=== PATIENT | male | born 2000 | race Caucasian/White ===

== ENCOUNTER 2021-09-30 15:38 | Emergency (ER) | payer OTHER, MEDICAID ==
[2021-09-30 15:58] VITALS: BP 143/85
[2021-09-30] MEDS ORDERED: Sodium Chloride 0.9% 10 ML Syringe FLUSH PRN (16:13)
[2021-09-30] MEDS ORDERED: Diphtheria,Pertussis(Acell),Tetanus Vaccine 0.5 ML Syringe IM ONE (16:13)
[2021-09-30] MEDS ORDERED: fentaNYL 50 MCG/ML SDV IVPUSH ONE (16:14)
[2021-09-30] MEDS ORDERED: Bacitracin Oint 1 GM U/D Packet TOP ONE (16:14)
[2021-09-30] MEDS ORDERED: Erythromycin Base 0.5% Ophth Oint 1 GM Tube EYEBOTH ONE (16:15)
[2021-09-30] MEDS ORDERED: Ketorolac 30 MG/ML SDV IM ONE (16:20)
[2021-09-30] MEDS ORDERED: oxyCODONE 5 MG Tab PO ONE (16:20)
[2021-09-30 17:29] VITALS: PULSE 60
== END 2021-09-30 18:26 | disposition home or self-care (01) ==
LOC: JP.ED 15:38
DX: T20.20XA Burn of second degree of head, face, and neck, unspecified site, initial encounter (principal); T22.212A Burn of second degree of left forearm, initial encounter; T22.211A Burn of second degree of right forearm, initial encounter; Z23 Encounter for immunization; Z79.899 Other long term (current) drug therapy; X58.XXXA Exposure to other specified factors, initial encounter; Y92.410 Unspecified street and highway as the place of occurrence of the external cause
CPT/HCPCS: 16020; 90471; 90715; 96372; 99283; A9270; J1885